=== PATIENT | male | born 1930 | race Caucasian/White ===

== ENCOUNTER → 2016-10-18 | Outpatient (CLI) | payer MEDICARE, OTHER ==
[~2016-10-18] MED LIST: /WARF5TAB PO; ATEN100T PO; COUM1TAB17 PO; ENAL2.5T PO; LIDOCAINE 2% MDV 20 ML VIAL As Ordered ONE; LIDOCAINE W/EPINEPHRINE 1% 20ML VIAL As Ordered ONE; PERCOCET PO; SODIUM BICARBONATE 8.4% INJ 50MEQ 50 ML VIAL As Ordered ONE; TYLE167L PO; aleve OR
--- NOTE | 2016-10-18 16:48 | REPKIM ---
CLINICAL HISTORY: Patient has a right IJ port-a-cath. The referring service has requested to remove the chest port-a-cath because it is no longer needed. PROCEDURE PERFORMED: Chest Port-A-Cath Removal INTERVENTIONALIST: Eliceo Jurado MD MEDICATIONS: Local Lidocaine EBL: less than 5 mL FLUORO TIME: 0.1 minutes CONSENT: The risks, benefits and alternatives to the procedure were explained to the patient and informed written consent was obtained. PROCEDURE/FINDINGS: The patient was brought to the interventional radiology suite and was positioned supine on the table. Time out procedure was performed. The pre-procedure chest fluoroscopy showed the catheter is intact in a satisfactory course with its tip at the cavoatrial junction. The right upper chest was prepped and draped in the usual sterile fashion. Local anesthesia was administered to the overlying skin and surrounding deep tissue around the existing port. Then a skin incision was made. The port was bluntly dissected free from the surrounding soft tissues. The catheter was removed, inspected and confirmed to be removed in its entirety. The deep tissue was closed with interrupted 2-0 Vicryl suture. The skin incision closed with running subcutaneous 4-0 Vicryl suture and steristrips. The patient tolerated the procedure well with no immediate complications. This procedure was performed with fluoroscopic guidance. Dr. Jurado was present. IMPRESSION: Successful chest port-a-cath removal as discussed above. cc: ROSALIO Daugherty
== END | disposition home or self-care (01) ==
LOC: M IRPRO 12:44
PROVIDERS: ATTEND Nurse Practitioner Family
DX: Z45.2 Encounter for adjustment and management of vascular access device (principal)

== ENCOUNTER → 2016-12-19 | Outpatient (REF) | payer MEDICARE, OTHER ==
[~2016-12-19] MED LIST changes: -LIDOCAINE 2% MDV 20 ML VIAL As Ordered ONE; -LIDOCAINE W/EPINEPHRINE 1% 20ML VIAL As Ordered ONE; -SODIUM BICARBONATE 8.4% INJ 50MEQ 50 ML VIAL As Ordered ONE
== END ==
LOC: M LAB REF 09:40
PROVIDERS: ATTEND Internal Medicine Medical Oncology
DX: C20 Malignant neoplasm of rectum (principal)